=== PATIENT | male | born 1940 | race Caucasian/White ===

== ENCOUNTER → 2023-11-07 10:19 | Outpatient (REF) | payer MEDICARE, OTHER, SELFPAY | LOC: MRI 3T 10:19 | PROVIDERS: ATTENDING PHYSICIAN Specialist; FAMILY PHYSICIAN Family Medicine | DX: N28.89 Other specified disorders of kidney and ureter (principal) | CPT/HCPCS: 74183; A9575 ==

== ENCOUNTER → 2024-08-28 06:43 | Outpatient (REF) | payer MEDICARE, OTHER, SELFPAY ==
[2024-08-28 07:15] LABS: PT 14.5 Sec (11.4-14.6)
[2024-08-28 07:18] LABS: Hematocrit 34.2 % (39.0-52.0); Hemoglobin 11.1 g/dL (13.0-18.0); Mean Corp Hgb Conc. 32.5 g/dL (33.0-37.0); Mean Corpuscular Hgb 26.9 pg (27.0-31.0); Mean Platelet Volume 11.8 fL (7.4-10.4); Platelet Count 203 10^3/uL (130-400); Red Blood Cell Count 4.12 10^6/uL (4.70-6.10); Red Cell Dist. Width 15.5 % (11.5-14.5); White Blood Cell Count 72.3 10^3/uL (4.8-10.8)
[2024-08-28 07:40] LABS: Absolute Neutrophils -Man Diff 59.2 10^3/uL (1.4-6.5); Band Neutrophils 13 % (0-3); Eosinophils 1 % (0-6); Lymphocytes 3 % (20-51); Monocytes 2 % (2-9); Segmented Neutrophils 69 % (42-75)
[2024-08-28 07:41] LABS: Acanthocytes 1+; Anisocytosis 1+; Atypical Lymphocytes 1 %; Hypochromasia 1+; Metamyelocytes 4 % (-); Myelocytes 7 % (-); Normal RBC Morphology No; Ovalocytes 1+; Platelets Checked Yes; Polychromasia 1+
[2024-08-28 07:42] LABS: Total Cells Counted 100
[2024-08-28 08:03] VITALS: BP 126/60; BP_SYST 53
[2024-08-28] MEDS: NSS (PRESERVATIVE FREE) 0.25 ML IV (08:20)
[2024-08-28] MEDS: ATIVAN 0.5 MG IV (08:21)
[2024-08-28] MEDS: FLUSH (NSS) 1 FLUSH IV (08:22)
[2024-08-28 09:04] VITALS: BP 123/54; BP_SYST 50
[2024-08-28 09:10] VITALS: BP 140/69
== END ==
LOC: RADI 06:43
PROVIDERS: ATTENDING PHYSICIAN Internal Medicine Hematology & Oncology; FAMILY PHYSICIAN Family Medicine; OTHER PHYSICIAN Physician Assistant
DX: D64.9 Anemia, unspecified (principal); D72.829 Elevated white blood cell count, unspecified
CPT/HCPCS: 88305; 88311; 88312; 36415; 38221; 77012; 85025; 85610; 88313

== ENCOUNTER 2024-12-25 08:41 | Emergency (ER) | payer MEDICARE, OTHER, SELFPAY ==
[2024-12-25] VITALS (8 sets, daily range): BP systolic 98–118; BP diastolic 53–61
--- NOTE | 2024-12-25 09:45 | ED.GENMED ---
History of Present Illness
<Griffin Alvarez PA-C - Last Filed: 12/25/24 15:07>
General
Chief Complaint: Weakness
Source: patient
Exam Limitations: none
Time Seen by Provider: 12/25/24 09:12
History of Present Illness
History of Present Illness:
84-year-old male with leukemia follows with Dr. Diaz here presents complaining of overwhelming fatigue and weakness worsening over the past several weeks. He also notes a 10 pound weight loss over 2 weeks. Of note, patient was vacationing in
[place] about 2 weeks ago and developed left upper quadrant pain. He was taken to [facility] was found to have blood clots in the spleen. He has been on Eliquis 5 mg twice a day since then. He denies any specific pain other
than the left upper quadrant. He does note a slight cough. No fevers or chills. No urinary symptoms. Overall he notes a decreased appetite. No other complaints at this time
Past History
<Griffin Alvarez PA-C - Last Filed: 12/25/24 15:07>
Past History
ED Past Medical History: CAD, GERD, HTN, Hypercholesterolemia and Other (Gout, osteoarthritis, lumbar DJD, sleep apnea/CPAP, kidney stones, chronic sinus bradycardia/right bundle-branch block.); Negative IDDM
ED Past Surgical History: Bowel resection, Cardiac (PTCA with stent 2011.), Urological and Other (Hernia repair)
Social History
Tobacco: Non-smoker
Alcohol: Occasional
Drug: None
Personal:
Living: with family
Employment: Retired
Family History
Family History: Hypertension
Phy Exam
<Griffin Alvarez PA-C - Last Filed: 12/25/24 15:07>
Physical Exam
Physical Exam:
General: Well-appearing male no acute respiratory distress
HEENT: Normocephalic atraumatic
Heart: Regular rate and rhythm
Lungs: Clear no wheeze
Abdomen soft mild tenderness to the left upper quadrant no guarding or rebound
Extremities: No cyanosis or edema
Skin: Warm no rash
Course
<Griffin Alvarez PA-C - Last Filed: 12/25/24 15:07>
Orders/Labs/Results
Orders:
Orders
12/25/24 08:47
EKG [Electrocardiogram (*1)] Urgent
Reason for Study: Fatigue / Weakness
EKG- Treatment ONCE
12/25/24 09:45
CR Chest - 2 Views Urgent
Comment:
Reason For Exam: cough, weakness
12/25/24 10:44
Complete Blood Count/With Diff Urgent
Comprehensive Metabolic Panel Urgent
Manual Differential Urgent
TSH Reflex To Free T4 Urgent
Troponin I Urgent
12/25/24 11:33
0.9% Sodium Chloride 1000 ml [Nss] 1,000 ml IV BOLUS
12/25/24 12:37
Urinalysis Reflex To Culture Urgent
Date Specimen was Collected: 12/25/24
Time Specimen was Collected: 09:45
Urine Microscopic Reflex Cult Urgent
Abnormal Lab Results
12/25/24 12/25/24
10:44 12:37
WBC 98.9 H* 10^3/uL
(4.8-10.8)
RBC 3.53 L 10^6/uL
(4.70-6.10)
Hgb 9.9 L g/dL
(13.0-18.0)
Hct 29.9 L %
(39.0-52.0)
RDW 18.7 H %
(11.5-14.5)
MPV 12.8 H fL
(7.4-10.4)
Abs Neuts (Manual) 78.1 H 10^3/uL
(1.4-6.5)
Segmented Neutrophils 78 H %
(42-75)
Lymphocytes (Manual) 6 L %
(20-51)
Monocytes (Manual) 13 H %
(2-9)
BUN 28 H mg/dl
(9-20)
Creatinine 1.5 H mg/dL
(0.7-1.3)
Glucose 121 H mg/dl
(70-99)
Calcium 8.0 L mg/dl
(8.4-10.2)
ALT 62 H U/L
(0-50)
Alkaline Phosphatase 175 H U/L
(38-126)
Total Protein 4.9 L g/dl
(6.3-8.2)
Albumin 3.1 L g/dl
(3.5-5.0)
Urine Albumin (Reflex) 1+ A
(Neg - Trace)
12/25/24 10:44
12/25/24 10:44
Vital Signs
Initial and Last Documented VS:
Initial Vital Signs
Temp Pulse Resp BP Pulse Ox
97.6 F 87 16 98/57 99
12/25/24 08:42 12/25/24 08:42 12/25/24 08:42 12/25/24 08:42 12/25/24 08:42
Last Documented Vital Signs
Temp Pulse Resp BP Pulse Ox
97.6 F 87 16 98/57 99
12/25/24 08:42 12/25/24 08:42 12/25/24 08:42 12/25/24 08:42 12/25/24 09:47
<Mariano Archibald MD - Last Filed: 12/25/24 10:24>
Orders/Labs/Results
Orders:
Orders
12/25/24 08:47
EKG [Electrocardiogram (*1)] Urgent
Reason for Study: Fatigue / Weakness
EKG- Treatment ONCE
12/25/24 09:45
CR Chest - 2 Views Urgent
Comment:
Reason For Exam: cough, weakness
12/25/24 10:44
Complete Blood Count/With Diff Urgent
Comprehensive Metabolic Panel Urgent
Manual Differential Urgent
TSH Reflex To Free T4 Urgent
Troponin I Urgent
12/25/24 11:33
0.9% Sodium Chloride 1000 ml [Nss] 1,000 ml IV BOLUS
12/25/24 12:37
Urinalysis Reflex To Culture Urgent
Date Specimen was Collected: 12/25/24
Time Specimen was Collected: 09:45
Urine Microscopic Reflex Cult Urgent
Abnormal Lab Results
12/25/24 12/25/24
10:44 12:37
WBC 98.9 H* 10^3/uL
(4.8-10.8)
RBC 3.53 L 10^6/uL
(4.70-6.10)
Hgb 9.9 L g/dL
(13.0-18.0)
Hct 29.9 L %
(39.0-52.0)
RDW 18.7 H %
(11.5-14.5)
MPV 12.8 H fL
(7.4-10.4)
Abs Neuts (Manual) 78.1 H 10^3/uL
(1.4-6.5)
Segmented Neutrophils 78 H %
(42-75)
Lymphocytes (Manual) 6 L %
(20-51)
Monocytes (Manual) 13 H %
(2-9)
BUN 28 H mg/dl
(9-20)
Creatinine 1.5 H mg/dL
(0.7-1.3)
Glucose 121 H mg/dl
(70-99)
Calcium 8.0 L mg/dl
(8.4-10.2)
ALT 62 H U/L
(0-50)
Alkaline Phosphatase 175 H U/L
(38-126)
Total Protein 4.9 L g/dl
(6.3-8.2)
Albumin 3.1 L g/dl
(3.5-5.0)
Urine Albumin (Reflex) 1+ A
(Neg - Trace)
12/25/24 10:44
12/25/24 10:44
Vital Signs
Initial and Last Documented VS:
Initial Vital Signs
Temp Pulse Resp BP Pulse Ox
97.6 F 87 16 98/57 99
12/25/24 08:42 12/25/24 08:42 12/25/24 08:42 12/25/24 08:42 12/25/24 08:42
Last Documented Vital Signs
Temp Pulse Resp BP Pulse Ox
97.6 F 87 16 98/57 99
12/25/24 08:42 12/25/24 08:42 12/25/24 08:42 12/25/24 08:42 12/25/24 09:47
<Griffin Alvarez PA-C - Last Filed: 12/25/24 15:07>
MDM/Problems Addressed
Differential Diagnosis Includes:
Generalized weakness is weight loss. No history of leukemia. Will check labs look for source of weakness with urine and chest x-ray. EKG and troponin pending
<Griffin Alvarez PA-C - Last Filed: 12/25/24 15:07>
*Pulse Oximetry
SaO2: 99
Oxygen Mode of Delivery: Room air
Patient hypoxic: no
*Critical Care Note
Total Time (30-74mins, 75-104mins- exclusive of procedures): Not Applicable
<Griffin Alvarez PA-C - Last Filed: 12/25/24 15:07>
Update Note
Update Note:
Patient reevaluated looks well he was given a liter of fluid here ate some lunch. White blood cell count is 98.9. Hemoglobin 9.9. Discussed findings with emergency room attending as well as oncology. Oncology believes his symptoms are likely
related to his underlying myelofibrosis. No overwhelming acute indication for admission. Discussed with patient and family regarding treatment options. They wish to go home. They were able to get an appointment with his oncologist for tomorrow
at 4 PM. All questions were answered.
ED Attending Note
<YOMAIRA Lara-Anurag - Last Filed: 12/25/24 15:07>
-
Portions of this chart may have been created with voice recognition software.� Occasional wrong word or��sound alike� substitutions may have occurred due to the inherent limitations of voice recognition software.
<Mariano Archibald MD - Last Filed: 12/25/24 10:24>
ED Attending Note
Patient seen and examined by attending physician: Yes
I performed the substantive portion of visit, reviewed & personally made and approve the management plan that is documented in note by myself or JENY.: Yes
ED Attending Note:
84-year-old male complaining of increased and ongoing general weakness fatigue and weight loss. Has been going on for weeks. Saw the primary 2 days ago for the same. No specific complaints denying chest pain shortness of breath headache fever
abdominal pain diarrhea etc. Multiple medical issues.
GENERAL: Alert and oriented in no apparent distress. Elderly and frail. Generally weak appearing but nontoxic
EYE: Orbits normal.
NECK: Supple, no thyroid palpable
CARDIAC: Regular rate and rhythm without any obvious murmurs.
LUNGS: Clear breath sounds,normal
ABDOMEN: Soft, without focal tenderness or distention
NEUROLOGICAL: Alert and oriented , grossly non-focal
SKIN: Warm and dry, no rash or lesion, no discoloration, skin intact.
MUSCULOSKELETAL: No edema,no deformity.Good color
PSYCH: Normal and appropriate interaction.
Patient with general weakness. Etiology by exam uncertain. Vital signs are stable. To consider electrolyte issue infectious issue cardiac issue thyroid issue. Workup in progress. Discussed with patient's primary physician
Discharge Plan
Departure
Patient Disposition: Home (Routine Discharge)
Date of Disposition: 12/25/24
Time of Disposition: 15:06
Patient with high blood pressure during this ER visit?: No
Discharge Problem:
Fatigue
Instructions: Generalized Weakness (DC)
Prescriptions:
No Action
famotidine 20 MG tablet
20 mg PO DAILY
aspirin 81 MG tablet,delayed release (DR/EC)
81 mg PO DAILY
atorvastatin 20 MG tablet
20 mg PO DAILY
lisinopril 20 MG tablet
20 mg PO DAILY
multivitamin with folic acid [Tab-A-Layne] 1 TABLET tablet
0.5 tab PO DAILY
allopurinol 300 MG tablet
300 mg PO DAILY Qty: 90 3RF
metoprolol martel-hydrochlorothiaz 50-12.5 mg Tablet Extended Release 24 Hr
1 tab PO DAILY
Referrals:
Agusto Kasper DO [Family Provider, Family Practice]
Activity Restrictions/Additional Instructions:
Please follow-up with oncology as planned. Return if worse otherwise
Interventions
Interventions:
*Risk Screen - Suicide Last Done: 12/25/24 08:42
*General Assessment Last Done: 12/25/24 08:42
*ED COVID-19 Vaccine History Last Done: 12/25/24 08:42
Discharge Date and Time
Print Language: OCCITAN
[2024-12-25 11:01] LABS: Hematocrit 29.9 % (39.0-52.0); Hemoglobin 9.9 g/dL (13.0-18.0); Mean Corp Hgb Conc. 33.1 g/dL (33.0-37.0); Mean Corpuscular Volume 84.7 fL (80.0-94.0); Platelet Count 178 10^3/uL (130-400); Red Cell Dist. Width 18.7 % (11.5-14.5)
[2024-12-25 11:12] LABS: ALT (SGPT) 62 U/L (0-50); AST (SGOT) 59 U/L (17-59); Albumin 3.1 g/dl (3.5-5.0); Alkaline Phosphatase 175 U/L (38-126); Blood Urea Nitrogen 28 mg/dl (9-20); Calcium 8.0 mg/dl (8.4-10.2); Carbon Dioxide 24 mmol/L (22-30); Chloride 106 mmol/L (98-107); Glucose 121 mg/dl (70-99); Potassium 4.2 mmol/L (3.5-5.1); Sodium 135 mmol/L (135-145); Total Protein 4.9 g/dl (6.3-8.2); eGFR 45.06
[2024-12-25 11:23] LABS: Troponin I < 0.012 ng/ml
[2024-12-25 11:31] LABS: Absolute Neutrophils -Man Diff 78.1 10^3/uL (1.4-6.5); Anisocytosis 1+; Hypochromasia 1+; Microcytosis 1+; Normal RBC Morphology No; Platelets Checked Yes; Polychromasia Slight
[2024-12-25 11:32] LABS: Total Cells Counted 100
[2024-12-25] MEDS: NSS 1000 IV (12:39)
[2024-12-25 12:55] LABS: Urine Character Clear (Clear)
[2024-12-25 14:19] LABS: Urine Red Blood Cell 0-2 /HPF (0-2); Urine Squamous Cell 0-2 /LPF (Few); Urine Urothelial Cell 0-2 /LPF (FEW); Urine White Cell 0-2 /HPF (0-5)
== END 2024-12-25 15:44 | disposition home or self-care (01) ==
LOC: EMR 08:41
PROVIDERS: Physician Assistant; EMERGENCY PHYSICIAN Emergency Medicine; FAMILY PHYSICIAN Family Medicine
DX: R53.1 Weakness (principal); R53.83 Other fatigue; R10.12 Left upper quadrant pain; E78.00 Pure hypercholesterolemia, unspecified; G47.30 Sleep apnea, unspecified; I10 Essential (primary) hypertension; I25.10 Atherosclerotic heart disease of native coronary artery without angina pectoris; M19.90 Unspecified osteoarthritis, unspecified site; Z79.01 Long term (current) use of anticoagulants; Z82.49 Family history of ischemic heart disease and other diseases of the circulatory system; Z87.442 Personal history of urinary calculi; Z95.5 Presence of coronary angioplasty implant and graft
CPT/HCPCS: 99283; 96360; 71046; 80053; 81003; 81015; 84443; 84484; 85025; 93005

== ENCOUNTER → 2025-01-25 09:53 | Outpatient (REF) | payer MEDICARE, OTHER, SELFPAY | LOC: RCS 09:53 | PROVIDERS: ATTENDING PHYSICIAN Nurse Practitioner Gerontology; FAMILY PHYSICIAN Family Medicine | DX: I25.810 Atherosclerosis of coronary artery bypass graft(s) without angina pectoris (principal); D73.5 Infarction of spleen; D75.81 Myelofibrosis | CPT/HCPCS: 93306 ==

== ENCOUNTER 2025-02-12 07:55 | Inpatient (IN) | payer MEDICARE, OTHER, SELFPAY ==
[2025-02-09 18:19] VITALS: BP 127/64
[2025-02-09 18:55] LABS: Hematocrit 24.7 % (39.0-52.0); Hemoglobin 8.5 g/dL (13.0-18.0); Mean Corp Hgb Conc. 34.4 g/dL (33.0-37.0); Mean Corpuscular Volume 88.2 fL (80.0-94.0); Red Cell Dist. Width 15.7 % (11.5-14.5)
[2025-02-09 19:04] LABS: ALT (SGPT) 51 U/L (0-50); AST (SGOT) 53 U/L (17-59); Albumin 3.4 g/dl (3.5-5.0); Alkaline Phosphatase 248 U/L (38-126); Blood Urea Nitrogen 43 mg/dl (9-20); Calcium 8.6 mg/dl (8.4-10.2); Carbon Dioxide 23 mmol/L (22-30); Chloride 108 mmol/L (98-107); Glucose 113 mg/dl (70-99); Potassium 3.8 mmol/L (3.5-5.1); Sodium 138 mmol/L (135-145); Total Protein 5.3 g/dl (6.3-8.2); eGFR 41.70
[2025-02-09 19:31] LABS: Platelet Count 55 10^3/uL (130-400)
[2025-02-09 19:32] LABS: Hypochromasia 2+; Normal RBC Morphology No; Platelets Checked Yes
[2025-02-09 19:33] LABS: Hypersegmented Neutrophil 2+; Polychromasia 2+
[2025-02-09 19:34] LABS: Total Cells Counted 100
[2025-02-09 19:51] VITALS: BP 129/61
[2025-02-09 20:00] VITALS: BP 127/49
[2025-02-09 21:00] VITALS: BP 145/64
[2025-02-09 21:44] LABS: Urine Character Clear (Clear)
[2025-02-09 21:50] LABS: Urine Squamous Cell 0-2 /LPF (Few)
[2025-02-09 22:06] LABS: Urine Red Blood Cell 16-20 /HPF (0-2); Urine White Cell 0-2 /HPF (0-5)
--- NOTE | 2025-02-09 22:51 | ED.GENMED ---
History of Present Illness
General
Chief Complaint: Weakness
Time Seen by Provider: 02/09/25 22:50
History of Present Illness
History of Present Illness:
FOCUSED PAST MEDICAL HISTORY
- The patient has a history of leukemia
REVIEW OF OLD RECORDS
- The patient was seen in our ED 6 weeks ago and at that time had overwhelming fatigue and weakness associated with a 10 pound weight loss over 2 weeks at that time
Note:
CHIEF COMPLAINT(S)
Weakness and inability to eat.
HISTORY OF PRESENT ILLNESS
The patient is an 84-year-old male with a history of myelofibrosis, presenting with generalized weakness and inability to eat. Symptoms have been ongoing and have worsened recently, with notable weakness in the past six weeks. He was previously seen
in the emergency department in December for similar symptoms. The patient denies any pain, vomiting, or diarrhea. He also denies any recent abdominal surgeries except for an appendectomy at 16 years of age. He has been under the care of Dr. iDaz,
his oncologist, who noted a significant rise in his white blood cell count to 213,000 two weeks ago, previously recorded at 190,000. He was previously on hydroxyurea, which did not help, and there are plans to initiate ?ruxolitinib (Jakafi)? pending
a blood test. The patient is awaiting a consultation on Tuesday to start this new medication. There are no reported neurological symptoms such as unilateral weakness.
PAST MEDICAL AND SURGICAL HISTORY
Myelofibrosis, appendectomy at age 16.
CHRONIC MEDICAL CONDITIONS SIGNIFICANTLY AFFECTING CARE
Chronic condition affecting care: Myelofibrosis.
PHYSICAL EXAM
- General: The patient appears generally weak and debilitated
- HEENT: Dry oral mucosa
- Cardiovascular: No murmurs, normal heart rate, regular rhythm, No chest wall tenderness
- Pulmonary: No respiratory distress, breath sounds are clear and equal
- Abdomen: Soft with no peritoneal signs, no tenderness, specifically there is no right upper quadrant tenderness
- Neurologic: Excellent strength all extremities, no coordination deficits
- Psychiatric: Appropriate mental status, normal insight and judgement
- Extremities: Nontender, no edema, moves all extremities equally
- Skin: No rash, no lesions
SUMMARY OF ENCOUNTER
The patient, an 84-year-old male with myelofibrosis, presented with generalized weakness and inability to consume food. A significant white blood cell elevation was noted, with his WBC count currently at 213,000. He has been on hydroxyurea without
improvement and is scheduled to start ruxolitinib on Tuesday. The patient received intravenous fluids to address dehydration due to decreased oral intake.
MANAGEMENT OF THE PATIENTS CARE WAS DISCUSSED WITH
Communication was made with the on-call rn oncology clinical regarding the patients current condition and management plan.
MEDICATION RECONCILIATION
The patient was administered intravenous fluids in the emergency department.
MEDICAL DECISION MAKING
- Complexity of Data Reviewed: Chronic conditions affecting care include myelofibrosis.
- Data:
- Category 1: Independent review of white blood cell count elevation noted from previous records.
- Category 3: Management discussion with the on-call rn oncology clinical.
DIAGNOSIS
Weakness secondary to inadequate oral intake and elevated white blood cell count in the context of myelofibrosis (ICD-10: D47.1 - Chronic myeloproliferative disease, unspecified).
Disposition:
SUMMARY OF ENCOUNTER
The patient, an 84-year-old male with myelofibrosis, presented to the emergency department with generalized weakness and decreased oral intake. Notable findings included a significantly elevated white blood cell count, low hemoglobin, and
thrombocytopenia with a platelet count of 55,000. The patients condition has caused a substantial decline in overall health, and he has been eating minimally, primarily cereal and occasional small snacks, under encouragement. After consulting with
Dr. Abel, it was recommended that the patient be admitted to the hospital due to weakness and poor nutritional intake. Dr. Diaz, the patients oncologist, has been notified about the hospital admission, with a planned follow-up appointment
on Tuesday.
DISPOSITION
Admit
ASSESSMENT
The patient is experiencing significant weakness related to his myelofibrosis, elevated white blood cell count, anemia, and thrombocytopenia, along with reduced oral intake.
EMERGENCY TREATMENTS ADMINISTERED
Administration of intravenous fluids for rehydration.
MANAGEMENT OF THE PATIENTS CARE WAS DISCUSSED WITH
Consultation with Dr. Abel and communication with Dr. Diaz regarding the patients condition and management plan.
PLAN
The patient will be admitted to the hospital to monitor his nutritional intake, manage his myeloproliferative disorder symptoms, and receive supportive care including fluids and possible transfusions if indicated due to anemia and thrombocytopenia.
INDEPENDENT REVIEW OF LABS AND INTERPRETATION OF TESTS
- My independent review of the complete blood count (CBC) shows a significantly elevated white blood cell count, low hemoglobin, and decreased platelet count.
- Liver function tests showed mildly abnormal results, though not acutely concerning in the absence of abdominal pain.
MEDICATION RECONCILIATION
The patient was provided with intravenous fluids in the emergency department.
MEDICAL DECISION MAKING
- Number and Complexity of Problems Addressed:
- Chronic conditions affecting care: Myelofibrosis, anemia, elevated white blood cell count, thrombocytopenia, and decreased oral intake.
- Data:
Category 1:
- Clinical information obtained from Dr. Sandoval recommendations and review of past lab results indicating elevated WBCs, low hemoglobin, and low platelet counts.
Category 3:
- Discussion of management with Dr. Abel and communication with the hospitalist, Dr. Abraham, for admission and ongoing management in the hospital.
-Risk:
Decisions regarding admission were made based on the patients issues with declining strength, significantly abnormal lab findings, and insufficient nutritional intake due to decreased appetite.
DIAGNOSIS
- Weakness secondary to inadequate oral intake and elevated white blood cell count in the context of myelofibrosis (ICD-10: D47.1 - Chronic myeloproliferative disease, unspecified)
- Anemia due to chronic disease (ICD-10: D63.8 - Anemia in other chronic diseases classified elsewhere)
- Thrombocytopenia (ICD-10: D69.6 - Thrombocytopenia, unspecified)
LABS
- White count to 13, hemoglobin 8.5, platelets 55, creatinine 1.6, total bili 1.6, alk phos 248
UPDATE
- I did call the lab due to the marked worsening of leukocytosis and the lab tells me that 2 lab technicians reviewed the slide and neither saw any blasts
- At about 11:15 PM, I discussed case with Dr. Puentes 'Myelofibrosis is typified by thes symptoms..needs rehab..new meds take weeks to work..he sounds deconditioned and she overwhelmed..I would admit and tune up to launch Tuesday for his visit
or if not ready then rehab'
- Hospitalist for admission
Past History
Past History
ED Past Medical History: CAD, GERD, HTN, Hypercholesterolemia and Other (Gout, osteoarthritis, lumbar DJD, sleep apnea/CPAP, kidney stones, chronic sinus bradycardia/right bundle-branch block.); Negative IDDM
ED Past Surgical History: Bowel resection, Cardiac (PTCA with stent 2011.), Urological and Other (Hernia repair)
Social History
Tobacco: Non-smoker
Alcohol: Occasional
Drug: None
Personal:
Living: with family
Employment: Retired
Family History
Family History: Hypertension
Phy Exam
Physical Exam
Physical Exam:
See HPI
Course
Orders/Labs/Results
Orders:
Orders
02/09/25 08:04
Complete Blood Count/With Diff Urgent
Manual Differential Urgent
02/09/25 18:21
Electrocardiogram (*1) Urgent
Reason for Study: Chest Pain
EKG- Treatment ONCE
02/09/25 18:33
Comprehensive Metabolic Panel Urgent
02/09/25 21:39
Urinalysis Reflex To Culture Urgent
Date Specimen was Collected: 02/09/25
Time Specimen was Collected: 21:36
Urine Microscopic Reflex Cult Urgent
02/09/25 22:56
0.9% Sodium Chloride 1000 ml [Nss] 1,000 ml IV BOLUS
Abnormal Lab Results
02/09/25 02/09/25 02/09/25
08:04 18:33 21:39
WBC 213.1 H* 10^3/uL
(4.8-10.8)
RBC 2.80 L 10^6/uL
(4.70-6.10)
Hgb 8.5 L g/dL
(13.0-18.0)
Hct 24.7 L %
(39.0-52.0)
RDW 15.7 H %
(11.5-14.5)
Plt Count 55 L 10^3/uL
(130-400)
Abs Neuts (Manual) 149.1 H 10^3/uL
(1.4-6.5)
Lymphocytes (Manual) 1 L %
(20-51)
Chloride 108 H mmol/L
(98-107)
BUN 43 H mg/dl
(9-20)
Creatinine 1.6 H mg/dL
(0.7-1.3)
Glucose 113 H mg/dl
(70-99)
Total Bilirubin 1.6 H mg/dl
(0.2-1.3)
ALT 51 H U/L
(0-50)
Alkaline Phosphatase 248 H U/L
(38-126)
Total Protein 5.3 L g/dl
(6.3-8.2)
Albumin 3.4 L g/dl
(3.5-5.0)
Ur Occult Blood Reflex 2+ A
(Negative)
Urine RBC 16-20 A /HPF
(0-2)
Urine Bacteria (Reflex) Few A
(Negative)
Urine Albumin (Reflex) 1+ A
(Neg - Trace)
02/09/25 08:04
02/09/25 18:33
Vital Signs
Initial and Last Documented VS:
Initial Vital Signs
Temp Pulse Resp BP Pulse Ox
36.9 C 75 16 127/64 99
02/09/25 18:19 02/09/25 18:19 02/09/25 18:19 02/09/25 18:19 02/09/25 18:19
Last Documented Vital Signs
Temp Pulse Resp BP Pulse Ox
36.9 C 83 18 145/64 96
02/09/25 18:19 02/09/25 21:45 02/09/25 21:45 02/09/25 21:00 02/09/25 22:54
*Pulse Oximetry
SaO2: 96
Oxygen Mode of Delivery: Room air
Patient hypoxic: no
*Critical Care Note
Total Time (30-74mins, 75-104mins- exclusive of procedures): Not Applicable
ED Attending Note
-
Portions of this chart may have been created with voice recognition software.� Occasional wrong word or��sound alike� substitutions may have occurred due to the inherent limitations of voice recognition software.
Discharge Plan
Departure
Patient Disposition: Admit
Date of Disposition: 02/09/25
Time of Disposition: 23:24
Presentation/result/management discussed w/ accepting MD/DO: Hospitalist
Patient with high blood pressure during this ER visit?: Yes
Discharge Problem:
Acute myelofibrosis
Prescriptions:
No Action
famotidine 20 MG tablet
20 mg PO DAILY
aspirin 81 MG tablet,delayed release (DR/EC)
81 mg PO DAILY
atorvastatin 20 MG tablet
20 mg PO DAILY
lisinopril 20 MG tablet
20 mg PO DAILY
multivitamin with folic acid [Tab-A-Layne] 1 TABLET tablet
0.5 tab PO DAILY
allopurinol 300 MG tablet
300 mg PO DAILY Qty: 90 3RF
metoprolol martel-hydrochlorothiaz 50-12.5 mg Tablet Extended Release 24 Hr
1 tab PO DAILY
Referrals:
Danzis,Agusto J., DO [Family Provider, Family Practice]
Interventions
Interventions:
*Risk Screen - Suicide Last Done: 02/09/25 18:19
*General Assessment Last Done: 02/09/25 20:54
*Neglect/Abuse Screening Last Done: 02/09/25 18:19
*ED- Fall Risk Assessment Last Done: 02/09/25 20:54
*ED COVID-19 Vaccine History Last Done: 02/09/25 20:54
ED- Cardiac Assessment Last Done: 02/09/25 20:54
ED- Neurological Assessment Last Done: 02/09/25 20:54
ED- Pulmonary Assessment Last Done: 02/09/25 20:54
Discharge Date and Time
Print Language: [place] CITIZ[place]
[2025-02-09] MEDS: NSS 1000 IV (23:06)
[2025-02-10] VITALS (11 sets, daily range): BP systolic 107–143; BP diastolic 47–77; PULSE 58–77; O2SAT 97; BMI 23.2
--- NOTE | 2025-02-10 00:40 | HPS.HSE ---
Family Physician
-
Family Physician: Agusto Kasper
Chief Complaint
-
Weakness
History of Present Illness
Patient is an 84y M with PMH significant for ASCVD, hypertension and myelofibrosis who presents to ED complaining of weakness, poor appetite and weight loss. Patient has been diagnosed with myelofibrosis and has had progressive weight loss and
weakness. He failed trial of hydroxyurea and is currently waiting to begin Jakafi. He has become progressively more weak at home and is having difficulty caring for him in his current state.
Patient denies any cough, dyspnea, chest pain, N/V/D, fevers / chills, etc.
He estimates that he has lost about 15 lbs in the past month.
Medical History
Past Medical History
Past Medical History: Reports Other
Additional Past Medical History:
ASCVD
Hypertension
CKD III
GENIE
Myelofibrosis
Spinal Stenosis
Left Ureteral Stenosis
Past Surgical History: Reports Other
Additional Past Surgical History:
CABG
PTCA with Stent
Appendectomy
Bone Marrow Biopsy
Cystoscopy / L Ureteral Stent
Mohs Surgery
Social History
Tobacco: Former Smoker (Quit smoking in 1989. > 40 pack years total use.)
Alcohol: None
Drug: None
Personal:
Living: With Family
Family History
Family History: Not pertinent
Allergies / Home Medications
Allergies reflects when Allergies were last updated in [facility].
Home Medications with original date entered in [facility]
Allergy/Medication List:
Allergies
Allergy/AdvReac Type Severity Reaction Status Date / Time
oxycodone (From Percocet) AdvReac Mild constipatio Verified 02/09/25 18:19
n
Home Medications
atorvastatin 20 mg tablet 20 mg PO DAILY High cholesterol 10/22/20
lisinopril 20 mg tablet 20 mg PO DAILY Blood pressure 10/22/20
multivitamin with folic acid 400 mcg tablet (Tab-A-Layne) 0.5 tab PO DAILY Supplement 10/22/20
apixaban 5 mg tablet (Eliquis) 5 mg PO BID 02/10/25
levothyroxine 50 mcg tablet 50 mcg PO DAILY 02/10/25
metoprolol succinate 25 mg tablet,extended release 24 hr 25 mg PO DAILY 02/10/25
Review of Systems
-
History Source: Patient
A 12 point ROS was completed and negative except as noted: Yes
Constitutional: Reports Weight Loss and Fatigue; Denies Fever or Chills
Respiratory: Denies Cough or Trouble Breathing
Cardiac: Denies Chest Pain or Palpitations
Abdomen/GI: Denies Abdominal Pain, Nausea, Vomiting or Diarrhea
: Denies Dysuria or Frequency
Musculoskeletal: Denies Joint Pain or Edema
Neurological: Reports Weakness; Denies Dizzy or Headache
Psych: Denies Depression or Anxiety
Physical Exam
Vital Signs
Vital Signs
Temp Pulse Resp BP Pulse Ox
98.4 F 83 18 145/64 96
02/09/25 18:19 02/09/25 21:45 02/09/25 21:45 02/09/25 21:00 02/09/25 22:54
Physical Exam
General: Other (84y M in no acute distress.)
HEENT: Moist mucous membranes and PERRLA
Respiratory: Clear; No Wheezes, Rales or Rhonchi
Cardiac: S1/S2 and Regular Rhythm; No Murmur
GI: Soft, Non Tender, Non Distended and Normal Bowel Sounds
Musculoskeletal: No Clubbing, No Cyanosis and Other (Trace edema b/l ankles.)
Neuro: AO x 3 and Nonfocal/grossly intact
Laboratory Results
-
02/09/25 08:04
02/09/25 18:33
Laboratory Results
Total Bilirubin 1.6 mg/dl (0.2-1.3) H 02/09/25 18:33
AST 53 U/L (17-59) 02/09/25 18:33
ALT 51 U/L (0-50) H 02/09/25 18:33
Alkaline Phosphatase 248 U/L (38-126) H 02/09/25 18:33
Impression/Plan
-
A/P: Patient is an 84y M with PMH significant for ASCVD, hypertension and myelofibrosis who presents to ED complaining of weight loss and progressive weakness.
Myelofibrosis
Progressive Weight Loss
Generalized Weakness
Chronic Anemia / Thrombocytopenia secondary to the above
- Observe overnight for further evaluation and treatment.
- Continue Eliquis.
- IVF support. PT / OT evaluations.
- Follow for any clinical improvement.
- Follow for changes in cell counts. No blasts seen on slide this evening.
- Patient may benefit from SNF / rehab stay.
- Has outpatient appointment on Tuesday to begin Jakafi.
- Heme / Onc consulted for additional recommendations.
ASCVD
- Stable. No current chest pain or dyspnea.
- Continue Eliquis, metoprolol, statin, etc.
CKD III
- Stable. SCr is at / near known baseline.
- Follow for any changes.
Hypothyroidism
- Continue current T4 supplementation.
- Update TFTs.
DVT Prophylaxis: On Eliquis
Code Status: Full
[2025-02-10] MEDS: LR 1000 IV (02:48)
[2025-02-10] MEDS: SYNTHROID 50 MCG PO (05:57)
--- NOTE | 2025-02-10 08:39 | CON.ONC ---
Consultation
-
Date Consultation Requested: 02/09/25
Date Consultation Performed: 02/10/25
Impression
Impression
PMF
Plan
Plan
Fatigue is expected symptom similar to B symptoms of lymphoma-- agree with transfusion of pRBCs given cardiac issues-- d/w family to pickup meds and keep f/u appointment with Dr Diaz upon starting meds as labs during admission will be avialble
Patient History
History of Present Illness
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
differential. Presented to [facility] with progressive low back pain for which imaging noted marrow replacement disorder. This prompted bone marrow biopsy. His CBC was found to be consistent with neutrophilia/basophilia/eosinophilia adn
mild anemiaof 11g Hgb.His CBC was monitored as his medical issues shifted to renolithiasis and monitoring a renal mass. In August of this year his monitored CBCs began to notice a shift to more immature forms in the myeloid series will repeat bone
marrow biopsy 09/06/2024 which was essentially unchanged from the study in 2020 though re-review c/w PMF ( primary myelofibrosis) for which he intiiated hydrea. 2 months ago he was admitted to a hospital while visiting in [place] for splenic infarct
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 His called me last evening w/ complaints that he is extremely weak and unable to ambulate prompting ER evalaution. Of note is 20lb unintentional weight loss in last 5 months
Past-Medical/Surgical History
CAD;GENIE;hyperlipidemia; CABG
Patient Medication
�Medication �Instructions �Recorded �Confirmed �Last Taken �Type
atorvastatin 20 mg tablet 20 mg PO DAILY High cholesterol 10/22/20 02/10/25 05/07/21 05:30 History
lisinopril 20 mg tablet 20 mg PO DAILY Blood pressure 05/02/10/25 05/07/21 08:00 History
multivitamin with folic acid 400 0.5 tab PO DAILY Supplement 10/22/20 02/10/25 05/05/21 History
mcg tablet (Tab-A-Layne)
apixaban 5 mg tablet (Eliquis) 5 mg PO BID 02/10/25 02/10/25 Unknown History
levothyroxine 50 mcg tablet 50 mcg PO DAILY 02/10/25 02/10/25 Unknown History
metoprolol succinate 25 mg 25 mg PO DAILY 02/10/25 02/10/25 Unknown History
tablet,extended release 24 hr
Active Medications
Generic Name Dose Route Start Last Admin
Trade Name Freq PRN Reason Stop Dose Admin
Acetaminophen 650 mg 02/10/25 02:08
Acetaminophen 325 Mg Tablet PO 03/10/25 02:07
Q4HPRN PRN
Mild Pain / Temp > 101
Apixaban 5 mg 02/10/25 08:00
Apixaban (Eliquis) 5 Mg Tablet PO 03/10/25 07:59
BID SAMEER
Atorvastatin Calcium 20 mg 02/10/25 08:00
Atorvastatin (Lipitor) 20 Mg Tablet PO 03/10/25 07:59
DAILY SAMEER
Lactated Ringer's 1,000 mls @ 80 mls/hr 02/10/25 02:08 02/10/25 02:48
Lr IV 1,000 mls
.[id number] SAMEER Administration
Levothyroxine Sodium 50 mcg 02/10/25 06:00 02/10/25 05:57
Levothyroxine 50 Mcg Tablet PO 03/10/25 05:59 50 mcg
DAILY @ 0600 SAMEER Administration
Lisinopril 20 mg 02/10/25 08:00
Lisinopril 20 Mg Tablet PO 03/10/25 07:59
DAILY SAMEER
Metoprolol Succinate 25 mg 02/10/25 08:00
Metoprolol 25 Mg Extended Release Tablet PO 03/10/25 07:59
DAILY SAMEER
Review of Systems
-
History Source: Patient and Family
All Other Systems: Reviewed and Negative
Physical Exam
-
General: No Apparent Distress
HEENT: Moist Mucous Membranes
Cardiology: Normal Sinus Rhythm
Pulmonary: Clear
GI: Soft and Normal Bowel Sounds
Musculoskeletal: No Clubbing, No Cyanosis and No Edema
Neurology: Non Focal
Labs
Lab Results
WBC 213.1 10^3/uL (4.8-10.8) H* 02/09/25 08:04
RBC 2.80 10^6/uL (4.70-6.10) L 02/09/25 08:04
Hgb 8.5 g/dL (13.0-18.0) L 02/09/25 08:04
Hct 24.7 % (39.0-52.0) L 02/09/25 08:04
MCV 88.2 fL (80.0-94.0) 02/09/25 08:04
MCH 30.4 pg (27.0-31.0) 02/09/25 08:04
MCHC 34.4 g/dL (33.0-37.0) 02/09/25 08:04
RDW 15.7 % (11.5-14.5) H 02/09/25 08:04
Plt Count 55 10^3/uL (130-400) L 02/09/25 08:04
MPV Not Reportable 02/09/25 08:04
Creatinine 1.6 mg/dL (0.7-1.3) H 02/09/25 18:33
Vital Signs
Vital Signs
Temp Pulse Resp BP Pulse Ox
98.7 F 65 16 123/47 97
02/10/25 07:00 02/10/25 07:00 02/10/25 07:00 02/10/25 07:00 02/10/25 07:00
[2025-02-10 08:48] LABS: ALT (SGPT) 36 U/L (0-50); AST (SGOT) 26 U/L (17-59); Albumin 2.7 g/dl (3.5-5.0); Alkaline Phosphatase 177 U/L (38-126); Blood Urea Nitrogen 37 mg/dl (9-20); Calcium 7.9 mg/dl (8.4-10.2); Carbon Dioxide 23 mmol/L (22-30); Chloride 110 mmol/L (98-107); Estimated Creatinine Clearance 37 ml/min; Glucose 82 mg/dl (70-99); Magnesium 1.9 mg/dl (1.6-2.3); Potassium 3.4 mmol/L (3.5-5.1); Sodium 139 mmol/L (135-145); Total Protein 4.4 g/dl (6.3-8.2); eGFR 45.06
[2025-02-10] MEDS: ELIQUIS 5 MG PO ×2 (09:21→19:48)
[2025-02-10] MEDS: TOPROL XL 25 MG PO (09:21)
[2025-02-10] MEDS: LIPITOR 20 MG PO (09:21)
[2025-02-10] MEDS: ZESTRIL 20 MG PO (09:21)
[2025-02-10 09:49] LABS: Hematocrit 21.9 % (39.0-52.0); Hemoglobin 7.1 g/dL (13.0-18.0); Mean Corp Hgb Conc. 32.4 g/dL (33.0-37.0); Mean Corpuscular Volume 90.5 fL (80.0-94.0); Platelet Count 38 10^3/uL (130-400); Red Cell Dist. Width 15.7 % (11.5-14.5)
[2025-02-10 12:42] LABS: COVID-19 Antigen Negative (Negative)
--- NOTE | 2025-02-10 12:57 | W.PN.UPDATE ---
Update Note
Progress Note Update
Nonbillable note
1. Myelofibrosis, pancytopenia -hemoglobin down to 7.1. 1 unit PRBC ordered. Platelet 38K. WBC 171K, leukemoid reaction?. COVID/flu check negative. Event oncology evaluation requested.
2. CKD stage IIIb -creatinine close to baseline. Monitor
3. Hypothyroidism -check thyroid function test. Maintain on levothyroxine.
4. History of splenic vein clot? -Diagnosed in [place] and has been maintained on Eliquis by primary oncologist Dr. Diaz. No bleeding diathesis , if noted to have any new bleeding or have worsening thrombocytopenia, eliquis will require
to be held
--- NOTE | 2025-02-10 15:03 | CM ---
Met with patient, his and daughter at bedside
[employer] letter explained; form signed @ 1500
is listed as primary contact but prefers that their daughter, Robyn Zeng, phone #[phone] be the Person to Notify
Pharmacy verified: [facility] @ [address] [place] [address]
Lives w/ ; one floor home @ [facility]; 1 step via garage to enter home; bathroom he uses has tub w/shower, grab bar
PLOF: reported he is independent with ambulation and ADLs
No SNF or VN utilization history; he just started PT in the home
will transport home
Plan: Discharge plan to be determined; Case Management will monitor for needs/services and support if recommended
[2025-02-11 03:37] VITALS: BP 136/72
[2025-02-11] MEDS: SYNTHROID 50 MCG PO (05:26)
[2025-02-11 08:32] VITALS: BP 124/72
--- NOTE | 2025-02-11 08:49 | W.PN.HOSP.TC ---
Today's Communication/Plan
-
see A/P
Assessment / Plan
Assessment / Plan
84 yo M with PMH significant for ASCVD, hypertension and myelofibrosis; p/w weakness, poor appetite and weight loss. Patient has been diagnosed with myelofibrosis and has had progressive weight loss and weakness. He failed trial of hydroxyurea and
is currently waiting to begin Jakafi. He has become progressively more weak at home and is having difficulty caring for him in his current state.
He estimates that he has lost about 15 lbs in the past month.
A/P:
# Myelofibrosis with pancytopenia
# Progressive Weight Loss
# Generalized Weakness
# Acute on Chronic Anemia / Thrombocytopenia secondary to the above
# significant WBC, ?AML transformation
Continue Eliquis.
s/p 1 unit PRBC transfusion, Hgb today pending
Follow for changes in cell counts.
s/p IVF support.
PT / OT recc HH
COVID/flu checked were negative.
Heme / Onc consulted for additional recommendations.
# History of splenic vein clot?
Diagnosed in [place] and has been maintained on Eliquis by primary oncologist Dr. Diaz.
No bleeding diathesis , if noted to have any new bleeding or have worsening thrombocytopenia, Eliquis will require to be held
# ASCVD, Stable.
Continue Eliquis, metoprolol, statin, etc.
# CKD III, Stable.
SCr at 1.5, at baseline.
# Hypothyroidism
TSH 3.43
Cont Synthroid
DVT Prophylaxis: On Eliquis
FC
DW daughter at bedside
DW Onc
total time spent 51 min
Anticipated Discharge: 24 - 48 hours
Subjective/Interval History
-
Date of Service: February 11, 2025
Objective Data
-
Labs:
Laboratory Results
02/11/25
07:59
WBC Pending
Hgb Pending
Hct Pending
Plt Count Pending
Sodium Pending
Potassium Pending
Chloride Pending
Carbon Dioxide Pending
BUN Pending
Creatinine Pending
Glucose Pending
Calcium Pending
Total Bilirubin Pending
AST Pending
ALT Pending
Alkaline Phosphatase Pending
Vital Signs:
Vital Signs
Temp Pulse Resp BP Pulse Ox
37.0 C 59 18 124/72 96
02/11/25 08:32 02/11/25 08:32 02/11/25 08:32 02/11/25 08:32 02/11/25 08:32
I&O
02/10/25 02/11/25 02/12/25
06:59 06:59 06:59
Intake Total 240 / 240 730 / 730
Output Total 250 / 250
Balance -10 / -10 730 / 730
Review of Systems
-
History Source: Patient
Constitutional: Reports Weakness
Physical Exam
-
General: Well Developed, Well Nourished, No Apparent Distress, Comfortable and Conversant; Negative Respiratory Distress
HEENT: Normocephalic, Atraumatic, Nose Appears Normal, Ears Appear Normal and Hearing Impaired; Negative Oxygen
Respiratory: Clear to Auscultation and Non Labored Respirations; Negative Accessory Resp Muscle Use
Cardiac: Regular Rhythm and S1/S2
GI: Soft, Nontender, Nondistended and Normal Bowel Sounds
Skin: Warm and Dry
Neuro: Awake and Alert
Psych: Calm and Intact Judgement/Insight
Data Reviewed
-
Labs: Labs Reviewed by me and Discussed with Patient
[2025-02-11] MEDS: ELIQUIS 5 MG PO (09:02)
[2025-02-11] MEDS: TOPROL XL 25 MG PO (09:02)
[2025-02-11] MEDS: LIPITOR 20 MG PO (09:03)
[2025-02-11] MEDS: ZESTRIL 20 MG PO (09:03)
[2025-02-11 09:09] LABS: ALT (SGPT) 33 U/L (0-50); AST (SGOT) 27 U/L (17-59); Albumin 2.7 g/dl (3.5-5.0); Alkaline Phosphatase 175 U/L (38-126); Blood Urea Nitrogen 32 mg/dl (9-20); Calcium 7.9 mg/dl (8.4-10.2); Carbon Dioxide 23 mmol/L (22-30); Chloride 111 mmol/L (98-107); Estimated Creatinine Clearance 37 ml/min; Glucose 90 mg/dl (70-99); Potassium 3.4 mmol/L (3.5-5.1); Sodium 139 mmol/L (135-145); Total Protein 4.5 g/dl (6.3-8.2); eGFR 45.06
--- NOTE | 2025-02-11 09:27 | W.PN.ONC2 ---
Today's Communication / Plan
-
pathology will plans to send peripheral flow
start jakifi 15mg daily today
Has Dr. Diaz follow up 03/01 for continued management
Impression
Impression
84yo M with BMBx 2020 that showed myelodysplastic/myeloproliferative�disorder,�otherwise�unclassified. More recent BMBx August 2024 suggestive of primary Myelofibrosis for which he started hydroxyurea October 2024 then discontinued secondary to fatigue.
He was recommended to start Jakafi, however, has not started yet
unintentional wt loss, loss of appetite, fatigue
progressive leukocytosis/primarily neutrophils, no blasts reported on diff, progressive anemia, and progressive thrombocytopenia
splenic infarct summer 2024
Renal mass followed by Dr. Richard
CKD
Plan
Plan
Initially planned for Jakifi 15mg BID, however, due to thrombocytopenia and available pill strength -start Jakafi 15mg daily today -family to bring from home to dispense from pharmacy as pt own med -orders placed
avoid anticoagulation, antiplatelet, NSAIDs with platelet count <50,000
transfuse platelets <20, <50 if bleeding
transfuse Hgb <8 with cardiac hx
check DIC panel
check TLS panel
check peripheral flow
review smear with pathology
goals restorative
Subjective/Objective
Subjective
afebrile, no hypoxia or hypotension
fatigue
denies bleeding
denies any sxs infection
Vital Signs:
Vital Signs
Temp Pulse Resp BP Pulse Ox
98.6 F 59 18 124/72 96
02/11/25 08:32 02/11/25 09:02 02/11/25 08:32 02/11/25 09:02 02/11/25 08:32
Lab Results:
Laboratory Data
WBC 171.8 10^3/uL (4.8-10.8) H* 02/10/25 06:54
Hgb 7.1 g/dL (13.0-18.0) L 02/10/25 06:54
Plt Count 38 10^3/uL (130-400) L D 02/10/25 06:54
eGFR 45.06 02/11/25 07:59
[2025-02-11 10:24] LABS: Absolute Neutrophils -Man Diff 149.1 10^3/uL (1.4-6.5)
[2025-02-11] MEDS: KCL 40 MEQ PO (10:26)
[2025-02-11 10:27] LABS: INR 1.53; PT 18.6 Sec (11.4-14.6)
[2025-02-11 10:28] LABS: APTT 42.5 Sec (23.4-35.0)
[2025-02-11 10:30] LABS: Fibrinogen 371 MG/DL (199-459)
[2025-02-11 10:39] LABS: Absolute Neutrophils -Man Diff 117.6 10^3/uL (1.4-6.5); Hematocrit 24.7 % (39.0-52.0); Hemoglobin 8.2 g/dL (13.0-18.0); Mean Corp Hgb Conc. 33.2 g/dL (33.0-37.0); Mean Corpuscular Volume 91.1 fL (80.0-94.0); Platelet Count 31 10^3/uL (130-400); Red Cell Dist. Width 15.7 % (11.5-14.5)
[2025-02-11 10:40] LABS: Anisocytosis Slight; Hypochromasia 1+; Normal RBC Morphology No; Platelets Checked Yes; Polychromasia 1+; Total Cells Counted 100
[2025-02-11 10:50] LABS: LDH 361 U/L (120-246); Uric Acid 11.5 mg/dl (3.5-8.5)
--- NOTE | 2025-02-11 12:24 | CM ---
Addendum entered by Candice Rosado 02/11/25 13:20:
Spoke with at bedside about HC. Pt is currently receiving home PT through [facility] ([facility])
Plan; D/C to home with PT.
Original Note:
Met with pt and daughter Robyn.Robyn states that pt currently does not have VN. Will wait to hear back from her after she confers with the patient's . Family will be bringing his CPAP from home.
Plan: Home ([facility]). Awaiting decision about HC/VN
[2025-02-11 15:57] VITALS: BP 141/59
[2025-02-11 15:57] LABS: Lyme Antibody Screen, EIA Negative (Negative)
[2025-02-11] MEDS: TYLENOL 650 MG PO (16:29)
[2025-02-11 16:33] VITALS: BMI 23.2
[2025-02-11 16:46] VITALS: BP 144/62; BP 152/66; PULSE 78; O2SAT 98
[2025-02-11] MEDS: NON-FORMULARY ITEM 15 MG PO (17:11)
--- NOTE | 2025-02-11 17:23 | PTCARENOTE ---
Received patient this am AAOx3. Pt's forgetful at times. Pt with poor appetite. Patient medication from home Reinaldo was set to pharmacy for bar code. Pt started on medication this evening. Pt complained of headache. Medicated with Tylenol with
relief. Report called 4W and patient sent to room 430.
--- NOTE | 2025-02-11 18:00 | PTCARENOTE ---
Patient transferred from 4E room 405 to 4W room 430. Patient oriented to unit and sitting in chair without any distress.
[2025-02-11 23:39] VITALS: BP 134/70; BP 138/65; BP 140/60; PULSE 61; PULSE 68; PULSE 75
[2025-02-12] MEDS: SYNTHROID 50 MCG PO (05:13)
[2025-02-12 06:00] VITALS: BMI 23.1
[2025-02-12 07:18] VITALS: BP 119/65; BP 132/68; BP 134/62; PULSE 68; PULSE 72; PULSE 77
--- NOTE | 2025-02-12 08:52 | W.PN.HOSP.TC ---
Addendum entered and electronically signed by Karol Serna MD 02/12/25 10:42:
d/w Onc Dr Diaz, she has cleared the pt for discharge today.
HH to be arranged by CM
Original Note:
Today's Communication/Plan
-
see A/P
Assessment / Plan
Assessment / Plan
84 yo M with PMH significant for ASCVD, hypertension and myelofibrosis; p/w weakness, poor appetite and weight loss. Patient has been diagnosed with myelofibrosis and has had progressive weight loss and weakness. He failed trial of hydroxyurea and
is currently waiting to begin Jakafi. He has become progressively more weak at home and is having difficulty caring for him in his current state.
He estimates that he has lost about 15 lbs in the past month.
A/P:
# Myelofibrosis with significant leucocytosis
# Progressive Weight Loss/ Generalized Weakness
# Acute on Chronic Anemia / Thrombocytopenia secondary to the above
s/p 1 unit PRBC transfusion, Hgb today pending
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
s/p IVF support.
COVID/flu checked were negative.
Blast cells on 02/05 at 2%, which does not meet criteria for AML
started Jakafi and monitor counts closely.
Follow flow cytology
Heme / Onc on board.
PT / OT recc HH
# History of splenic vein clot?
Diagnosed in [place] and was on Eliquis per primary oncologist Dr. Diaz.
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
# ASCVD, Stable.
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
Cont metoprolol with holding parameter
Cont statin
# CKD III, Stable.
SCr at 1.5, at baseline.
# Hypothyroidism
TSH 3.43
Cont Synthroid
DVT Prophylaxis: SCD
FC
DW daughter at bedside
DW Onc
total time spent 51 min
Anticipated Discharge: 24 - 48 hours
Subjective/Interval History
-
Date of Service: February 12, 2025
Objective Data
-
Labs:
Laboratory Results
02/12/25
08:00
WBC Pending
Hgb Pending
Hct Pending
Plt Count Pending
Sodium Pending
Potassium Pending
Chloride Pending
Carbon Dioxide Pending
BUN Pending
Creatinine Pending
Glucose Pending
Calcium Pending
Vital Signs:
Vital Signs
Temp Pulse Resp BP Pulse Ox
36.6 C 78 16 134/62 98
02/12/25 07:18 02/12/25 07:18 02/12/25 07:18 02/12/25 07:18 02/12/25 07:18
I&O
02/11/25 02/12/25 02/13/25
06:59 06:59 06:59
Intake Total 730 / 730 800 / 800
Balance 730 / 730 800 / 800
Review of Systems
-
History Source: Patient
Constitutional: Reports Weakness
Physical Exam
-
General: Well Developed, Well Nourished, No Apparent Distress, Comfortable and Conversant; Negative Respiratory Distress
HEENT: Normocephalic, Atraumatic, Nose Appears Normal, Ears Appear Normal and Hearing Impaired; Negative Oxygen
Respiratory: Clear to Auscultation and Non Labored Respirations; Negative Accessory Resp Muscle Use
Cardiac: Regular Rhythm and S1/S2
GI: Soft, Nontender, Nondistended and Normal Bowel Sounds
Skin: Warm and Dry
Neuro: Awake and Alert
Psych: Calm and Intact Judgement/Insight
Data Reviewed
-
Labs: Labs Reviewed by me and Discussed with Patient
[2025-02-12] MEDS: NON-FORMULARY ITEM 15 MG PO (08:54)
[2025-02-12] MEDS: LIPITOR 20 MG PO (08:54)
[2025-02-12] MEDS: ZESTRIL 20 MG PO (08:54)
[2025-02-12] MEDS: TOPROL XL 25 MG PO (08:54)
[2025-02-12 09:56] LABS: Hematocrit 25.3 % (39.0-52.0); Hemoglobin 8.9 g/dL (13.0-18.0); Mean Corp Hgb Conc. 35.2 g/dL (33.0-37.0); Mean Corpuscular Volume 91.0 fL (80.0-94.0); Platelet Count 32 10^3/uL (130-400); Red Cell Dist. Width 15.8 % (11.5-14.5)
[2025-02-12 10:24] LABS: Blood Urea Nitrogen 33 mg/dl (9-20); Calcium 8.1 mg/dl (8.4-10.2); Carbon Dioxide 21 mmol/L (22-30); Chloride 112 mmol/L (98-107); Estimated Creatinine Clearance 36 ml/min; Glucose 90 mg/dl (70-99); Magnesium 2.1 mg/dl (1.6-2.3); Potassium 3.9 mmol/L (3.5-5.1); Sodium 138 mmol/L (135-145); eGFR 45.06
[2025-02-12] MEDS: ZYLOPRIM 300 MG PO (11:16)
--- NOTE | 2025-02-12 12:28 | W.DCSUMMARY ---
Discharge Summary
Discharge Data
Date of Admission: 02/12/25
Date of Discharge: 02/12/25
Total time spent discharging patient (in min): 40
-
Pending Results: No
Hospital Course
Principal Diagnosis:
Myelofibrosis with significant leucocytosis, and anemia/thrombocytopenia
Progressive Weight Loss/ Generalized Weakness
Chronic Diagnoses:�
History of splenic vein clot, was on Eliquis [employer] which has been stopped this admission with low platelet count.
ASCVD, stable. Continue metoprolol and statin
CKD III, Stable.
Hypothyroidism, TSH 3.43 this admission, continue Synthroid
Consultations:�
Oncology
Procedures:�
None
Clinical course:�
This is 84-year-old male with past medical history as stated above, who presented with weakness, poor appetite, and weight loss.
Problem 1:
Myelofibrosis with significant leucocytosis, and anemia/thrombocytopenia. This was associated with progressive weight loss and generalized weakness.
He received 1 unit PRBC transfusion this admission, and his hemoglobin on the day of discharge was at 8.9.
His prior to admission Eliquis was stopped this admission with severe thrombocytopenia (platelet count 32,000 on the day of discharge).
Blast cell was checked which was at 2%, which does not meet criteria for AML.
Flow cytometry was sent, which the patient can follow-up outpatient.
He was started with Jakafi this admission, and can continue outpatient per the direction of his oncologist.
He was discharged home with home health per PT recommendation.
As for the rest of his medical problems, they were stable during his hospital stay.
Discharge Plan
-
Patient Disposition: Home with Home Care
Discharge Diagnosis/Procedures: Myelofibrosis with significant leucocytosis and anemia/thrombocytopenia;
Progressive Weight Loss/ Generalized Weakness
s/p 1 unit PRBC transfusion this admission
Condition: Fair
Diet: As tolerated
Activity: As tolerated
Driving Restrictions: As prior to admission
Blood Work: CBC, BMP with your oncologist
Referrals:
Agusto Kasper DO [Family Provider, [facility]] - in less than 1 week
Additional Discharge Medication Instructions: Stop Eliquis with low platelet count (32k on discharge)
You were started with allopurinol for high uric acid
Prescriptions:
New
allopurinol 300 mg Tablet
300 mg PO DAILY Qty: 30 0RF
Continued
atorvastatin 20 MG tablet
20 mg PO DAILY
lisinopril 20 MG tablet
20 mg PO DAILY
multivitamin with folic acid [Tab-A-Layne] 1 TABLET tablet
0.5 tab PO DAILY
levothyroxine 50 mcg Tablet
50 mcg PO DAILY
metoprolol succinate 25 mg Tablet Extended Release 24 Hr
25 mg PO DAILY
Discontinued
Eliquis 5 mg Tablet
5 mg PO BID
Discharge Orders:
Discharge Patient (As Directed); Ordered 02/12/25
Ordered By: Karol Serna
Discharge Date and Time
Print Language: SWISS
--- NOTE | 2025-02-12 12:32 | VNURNOTE ---
Home Health Liaison spoke with patient's spouse and daughter; discussed [facility] nurse/therapy, visits, schedule and homebound status. They are agreeable and understand that visits at home will be 2-3 x per week to assess and teach medical
management. They are aware that [facility] will contact them for start of care in 1-2 days after discharge from . Provided contact number for [facility].
[facility] referral completed in [facility].
[2025-02-12 13:03] LABS: LDH 454 U/L (120-246); Uric Acid 12.4 mg/dl (3.5-8.5)
[2025-02-12 13:08] LABS: Absolute Neutrophils -Man Diff 136.7 10^3/uL (1.4-6.5)
[2025-02-12 13:09] LABS: Normal RBC Morphology No; Platelets Checked Yes
[2025-02-12 13:11] LABS: Acanthocytes Slight; Anisocytosis 1+; Hypochromasia 1+; Ovalocytes Slight; Polychromasia Slight; Total Cells Counted 100
[2025-02-12 14:06] VITALS: BP 127/58
--- NOTE | 2025-02-12 17:06 | W.PN.ONC ---
Today's Communication / Plan
-
Okay for d/c from my standpoint
Jakafi 15mg/day started yesterday
Will await Rx for 5mg tablets and reduce dose further if needed
Monitor CBC and TLS labs weekly
Continue allopurinol
Stop Eliquis
f/u with me in late February, arranged
Impression
Impression
84yo M with BMBx 2020 that showed myelodysplastic/myeloproliferative�disorder,�otherwise�unclassified. More recent BMBx August 2024 suggestive of primary Myelofibrosis for which he started hydroxyurea October 2024 then discontinued secondary to fatigue.
He was recommended to start Jakafi, however, has not started yet
unintentional wt loss, loss of appetite, fatigue
progressive leukocytosis/primarily neutrophils, no blasts reported on diff, progressive anemia, and progressive thrombocytopenia
splenic infarct summer 2024
Renal mass followed by Dr. Richard
CKD
Plan
Plan
Okay for d/c from my standpoint
Jakafi 15mg/day started yesterday
Will await Rx for 5mg tablets and reduce dose further if needed
Monitor CBC and TLS labs weekly
Continue allopurinol
Stop Eliquis
f/u with me in late February, arranged
Subjective/Objective
Subjective/Objective
Patient was seen on am rounds (late entry)
Family at bedside
He took first dose of Jakafi yesterday, and notes improved appetite already
Vital Signs:
Vital Signs
Temp Pulse Resp BP Pulse Ox
98.6 F 69 20 127/58 98
02/12/25 14:06 02/12/25 14:06 02/12/25 14:06 02/12/25 14:06 02/12/25 14:06
Lab Results:
Laboratory Data
WBC 220.5 10^3/uL (4.8-10.8) H* 02/12/25 08:00
Hgb 8.9 g/dL (13.0-18.0) L 02/12/25 08:00
Plt Count 32 10^3/uL (130-400) L 02/12/25 08:00
PT 18.6 Sec (11.4-14.6) H 02/11/25 09:52
INR 1.53 02/11/25 09:52
APTT 42.5 Sec (23.4-35.0) H 02/11/25 09:52
eGFR 45.06 02/12/25 08:00
--- NOTE | 2025-02-13 08:39 | CM ---
Late entry 02/12/25 Spoke with Sagrario , patient and dgt in room.
Pt agrees to discharge today . IMM reviewed signed on chart.
Pt requested [facility] for SN PT OT . Jo Guzman set him up with [facility].
will drive him home.
PLAN Home with [facility]
[2025-02-13 13:55] LABS: Source Blood
== END 2025-02-12 14:16 | disposition home health service (06) | DRG 813 ==
LOC: 4 WEST ACU 07:55
PROVIDERS: Emergency Medicine; Hospitalist; Nurse Practitioner Acute Care; ADMITTING PHYSICIAN Hospitalist; ATTENDING PHYSICIAN Internal Medicine; CONSULT PHYSICIAN Internal Medicine Hematology & Oncology; EMERGENCY PHYSICIAN Emergency Medicine; FAMILY PHYSICIAN Family Medicine
PROC: 30233N1 Transfusion of Nonautologous Red Blood Cells into Peripheral Vein, Percutaneous Approach (ICD-10-PCS; 2025-02-10)
DX: D69.59 Other secondary thrombocytopenia (principal); C94.40 Acute panmyelosis with myelofibrosis not having achieved remission; D47.1 Chronic myeloproliferative disease; D63.8 Anemia in other chronic diseases classified elsewhere; E78.00 Pure hypercholesterolemia, unspecified; G47.33 Obstructive sleep apnea (adult) (pediatric); R63.4 Abnormal weight loss; I12.9 Hypertensive chronic kidney disease with stage 1 through stage 4 chronic kidney disease, or unspecified chronic kidney disease; I25.10 Atherosclerotic heart disease of native coronary artery without angina pectoris; K21.9 Gastro-esophageal reflux disease without esophagitis; M10.9 Gout, unspecified; E03.9 Hypothyroidism, unspecified; N18.32 Chronic kidney disease, stage 3b; D72.10 Eosinophilia, unspecified; I45.10 Unspecified right bundle-branch block; Z87.442 Personal history of urinary calculi; Z95.5 Presence of coronary angioplasty implant and graft; Z90.49 Acquired absence of other specified parts of digestive tract; Z68.23 Body mass index [BMI] 23.0-23.9, adult; Z11.52 Encounter for screening for COVID-19; Z95.1 Presence of aortocoronary bypass graft; Z87.891 Personal history of nicotine dependence; Z79.01 Long term (current) use of anticoagulants; Z79.890 Hormone replacement therapy
CPT/HCPCS: 80048; 80053; 80076; 81003; 81015; 83615; 83735; 84100; 84443; 84550; 85025; 85027; 85384; 85610; 85730; 86618; 86850; 86900; 86901; 86920; 87502; 87811; 93005; 96360; 97162; 97166; 97530; 99285; P9016